=== PATIENT | female | born 1950 | race Caucasian/White ===

== ENCOUNTER → 2019-10-10 | Outpatient (CLI) | payer MEDICARE, BC, OTHER ==
[~2019-10-10] MED LIST: BIEST/PROGESTERONE TOP; CHOL10002; Calcium Citrat200 MG PO; LEVSOD88; Multiple Vitam1 EAC1 PO; [UNRECOGNIZED DRUG - OTHER]
== END ==
LOC: LAB 16:19 → LAB SHORT 16:19
DX: J02.9 Acute pharyngitis, unspecified (principal)
CPT/HCPCS: 87081; 87430